=== PATIENT | female | born 1980 | race Caucasian/White ===

== ENCOUNTER 2019-10-01 19:10 | Emergency (ER) | payer BC ==
[~2019-10-01] VITALS: Ht 165.1 cm; Wt 90.9 kg
[2019-10-01 21:02] VITALS: BP 118/75
== END 2019-10-01 21:03 | disposition home or self-care (01) ==
LOC: ER 19:11
DX: S61.213A Laceration without foreign body of left middle finger without damage to nail, initial encounter (principal); M79.645 Pain in left finger(s); Z88.0 Allergy status to penicillin; W26.0XXA Contact with knife, initial encounter; Y93.89 Activity, other specified; Y92.89 Other specified places as the place of occurrence of the external cause; Y99.8 Other external cause status
CPT/HCPCS: 12001; 99282; 99283

== ENCOUNTER 2023-10-17 08:35 | Day surgery (SDC) | payer BC, MEDICARE ==
[~2023-10-17] VITALS: Ht 165.1 cm; Wt 88.6 kg
[~2023-10-17 08:35] MED LIST: CARB200C7 PO; CITA20TA28 PO; FENO145T25 PO; LEVO50TA8 PO; NORE-142; OMEP40CA21 PO; ROSU40TA PO; ZONI100C87; ZONI100C87 PO
[2023-10-17 09:19] VITALS: BP 105/72; PULSE 81; RESP 16
[2023-10-17] MEDS ORDERED: propofol inj 20 ML IV ONE ×2 (10:24)
[2023-10-17] MEDS ORDERED: propofol inj 40 ML IV ONE (10:30)
[2023-10-17 10:45] VITALS: BP 102/72; PULSE 84; RESP 18; O2SAT 99
[2023-10-17 10:55] VITALS: BP 105/66; PULSE 74; RESP 16; O2SAT 100
[2023-10-17 11:05] VITALS: BP 108/70; PULSE 75; RESP 16; O2SAT 99
[2023-10-17 11:15] VITALS: BP 111/74; PULSE 73; RESP 16; O2SAT 99
[2023-10-17 11:40] VITALS: BP 101/69; PULSE 62; RESP 14; O2SAT 95
== END 2023-10-17 11:15 | disposition home or self-care (01) ==
LOC: GI LAB 08:35
PROVIDERS: ATTEND Internal Medicine Gastroenterology
DX: K92.1 Melena (principal); K64.9 Unspecified hemorrhoids; E05.90 Thyrotoxicosis, unspecified without thyrotoxic crisis or storm; F32.A Depression, unspecified; Z87.891 Personal history of nicotine dependence
CPT/HCPCS: 45378; J2704; J7030; Z7512; A4620